=== PATIENT | male | born 1955 | race Caucasian/White ===

== ENCOUNTER 2023-10-29 06:46 | Day surgery (SDC) | payer OTHER, MEDICARE ==
[2023-10-14 13:44] LABS: Absolute Lymphocytes (CBC) 1.4 K/uL (0.7-4.9); Hematocrit 43.7 % (39.6-49.0); Lymphocytes % 23.3 % (15.3-44.8); MCV 90.3 fL (80-100); MPV 6.7 fL (7.6-11.3); Platelets 234 thou/uL (152-406); RBC Red Blood Cell Count 4.83 M/uL (4.33-5.43)
[2023-10-14 13:52] LABS: Protime INR 1.03
--- NOTE | 2023-10-14 17:26 | RAD REPORT ---
EXAM DESCRIPTION: RAD - Chest Pa And Lat (2 Views) - 10/14/2023 1:36 pm CLINICAL HISTORY: pre op for surgery. Hypertension COMPARISON: Chest Single View dated 11/24/2017 TECHNIQUE: PA and lateral views of the chest were obtained. FINDINGS: The lungs are clear. Heart size is normal and central vasculature is within normal limits. No pleural effusion or pneumothorax seen. No acute bony finding noted. IMPRESSION: No acute cardiopulmonary process.
--- NOTE | 2023-10-15 17:51 | EKG ---
Test Date: 2023-10-14 Test Time: 14:26:20 Die Maker Bench Stamping: ARIC MEASUREMENT RESULTS: Intervals: Rate: 75 NE: 190 QRSD: 90 QT: 364 QTc: 406 Amelia: P: 33 NE: 190 QRS: 82 T: 8 INTERPRETIVE STATEMENTS: Sinus rhythm with premature atrial complexes Otherwise normal ECG Compared to ECG 11/24/2017 01:47:10 Atrial premature complex(es) now present Myocardial infarct finding no longer present Electronically Signed On 10-15-23 17:50:25 SYNTHETIC PLASTERER by Darell Zaragoza
[2023-10-29] MEDS ORDERED: Ringers Lactate 1,000 ML IV ONE (07:06)
[2023-10-29] MEDS ORDERED: CEFAZOLIN SODIUM 2 GM/VIAL ONE (07:34)
[2023-10-29] MEDS ORDERED: propofoL 200 MG/20 ML VIAL IV ONE (07:58)
[2023-10-29] MEDS ORDERED: MIDAZOLAM HCL 2 MG/2 ML INJ ONE (07:58)
[2023-10-29] MEDS ORDERED: FENTANYL CITR 100 MCG/2 ML ONE (07:58)
[2023-10-29] MEDS ORDERED: LIDOCAINE 1% MPF 5 ML VIAL ONE (07:58)
[2023-10-29] MEDS ORDERED: KETOROLAC 30 MG/ML INJ ONE (08:46)
[2023-10-29] MEDS ORDERED: dexAMETHasone 10 MG/ML VIAL ONE (08:46)
[2023-10-29] MEDS ORDERED: ONDANSETRON 4 MG/2 ML VIAL ONE (08:46)
[2023-10-29] MEDS ORDERED: PHENAZOPYRIDINE 100MG TAB PO ONE (10:00)
[2023-10-29] MEDS ORDERED: CODEINE 30MG/APAP 300MG TAB PO PRN (10:00)
[2023-10-29] MEDS ORDERED: CODEINE 30MG/APAP 300MG TAB ONE (11:02)
[2023-10-29] MEDS ORDERED: CODEINE 30MG/APAP 300MG TAB PO ONE (11:03)
[2023-10-29 11:38] VITALS: O2SAT 100
[2023-10-29 12:41] VITALS: BP 140/83; TEMP 96.9
--- NOTE | 2023-10-29 19:33 | OP ---
Surgeon: MELISSA HERNANDEZ Preoperative Diagnoses: 1.Benign prostatic hypertrophy with lower urinary tract obstruction and symptoms. 2.History of UroLift 7 years ago. Postoperative Diagnoses: 1.Benign prostatic hypertrophy with lower urinary tract obstruction and symptoms. 2.History of UroLift 7 years ago. Principal Procedures: 1.Prostatic urethral lift/UroLift with 5 implants placed, 2 pull-throughs, a total of 7 implants use d. 2.Cystoscopy with foreign body extraction. 3.Cystoscopy with fulguration. Indication For Procedure: Mr. Carter presented to the [facility] with bothersome urinary symptoms that have recurred after his history of UroLift with significant improvement several years ago. He resumed monotherapy with an alpha-demarcus, Flomax, but did not desire to remain on medical therapy. Instead, he would prefer to have definitive surgical correction performed again and elected to procee d with redo/repeat UroLift. Procedure In Detail: The patient was consented in the preoperative holding area before being transfe rred to the operative suite where general anesthesia was induced. He was given Ancef 2 g IV antimicr obial prophylaxis, and pneumo boots were provided for DVT prophylaxis. He was placed in the lithotom y position, padded and secured to the table appropriately, and his genitalia was prepped with Hibicle ns before being draped in standard fashion. The case was begun using the 20-Cuban UroLift obturator and a visual obturator to traverse the urethra and into the bladder with ease. The anatomy of obstr uction observed was a small median lobe with some residual lateral lobar hypertrophy. Evidence of pr ior UroLift implant was present, but interdigitating lateral lobar hypertrophy nevertheless had recur red in the interim. As a result, I started by switching the visual obturator for first UroLift deliv silvana device and implant, and I targeted the patient's bladder neck on the left side because the implan t placed on the right side seem to still nicely lateralize the tissue in that location. Thus, target ing approximately 1.5-2 cm distal to the bladder neck opening, at around the 1 to 2 o'clock position, I angled the scope about 15 degrees touching the tissue and pulled the trigger, delivering the needl e through the surface of the prostate to the capsule. I then angled the scope an additional 15 degre es to ensure the needle was delivered through to the capsular surface before pulling the trigger a se cond time to deliver the capsular tab and partially retract the needle. A third pull of the trigger did tension the suture and completely retracted the needle before I then advanced the scope back towa rd the midline and 2-3 mm toward the bladder neck opening before pulling the trigger fourth time depl oying the urethral end piece, which did situate nicely with a good rim of prostate tissue between the implant and the opening into the bladder. As a result, I surveyed the channel created with the visu al obturator and there was a beautiful opening at the bladder neck from the old implant and the new i mplant placed. The tissue that was obstructing was in the apical mid portion of the prostate; so I t urned my attention to the apex of the prostate and started on the patient's right apex. At the level of the verumontanum, I used a new implant, which I attempted to deliver at around the 11 o'clock pos ition on the patient's right side at the level of the verumontanum. Unfortunately, after 2 pulls of the trigger and attempting to advance the scope toward the bladder neck, there was some resistance an d the suture did not flow smoothly within the delivery bay. As a result, when I pulled the trigger a fourth time, there was evident pull-through of the capsular tab, which was situated partially within the tissue at the apex. As a result, I had to switch the 20-Cuban UroLift sheath for a 22-Cuban r igid cystoscope sheath and used the cold cup biopsy forceps to grasp the implant and its capsular tab in its entirety and removed it under direct vision. I then went back to the visual obturator and th e 20-Cuban sheath and replaced the UroLift device back into his bladder. I then targeted with now t he third implant the same position at the patient's right apex, and successfully delivered an implant in that location. This was a second implant placed, but the third used. I then targeted the patien t's left side at the apex, but this obstruction was more apical mid gland, so I applied a fourth impl ant, used the third implant placed in that position on the patient's left side. I then surveyed the channel created, and there was some residual intrusion in the mid base zone of the prostate on the pa tient's right side; so I used a fifth implant, the fourth implant to be successfully placed and later alized the tissue on the patient's right side, creating a nice channel. The median lobe was then ass essed to be partially residually obstructing; so, I utilized a sixth implant this time situated withi n the patient's right lateral sulcus and was able to nicely pin the median lobe over to the patient's left side with the implant nicely tucked within the prostatic urethra, not exposed to the intravesic al space. As a result, this was the fifth implant placed for a total of 6 used. I then surveyed the channel created again using the visual obturator, and did appreciate a slight degree of left mid bas e intrusion, and since this was a redo/repeat UroLift, in an effort to try to achieve absolute perfec tion, I utilized a seventh implant and targeted that tissue. Unfortunately, this did result in failu re of delivery of the implant with the device completely malfunctioning and failing to even deliver t he capsular tab to the capsular surface of the prostate. As a result, I removed that implant and dis carded it. In the end, a total of 5 implants were successfully placed, there was 1 pull-through and 1 failure of the device for a total of 7 implants used. Because there was some bleeding from that la st attempted implant site, I then switched to sterile water as the irrigant and went back to the 22-F rench rigid cystoscope and used a Bugbee electrode to fulgurate the bleeding vessel in that location until the prostatic channel was completely hemostatic. I then refilled his bladder with sterile wate r and confirmed the presence of a beautiful continuous anterior channel before I then placed an 18-Fr ench coude tip catheter into his bladder and connected it to a leg bag. He was then taken out of the lithotomy position, awakened from general anesthesia, transferred to a stretcher, and then transferr ed to the recovery room in good condition. Complications: None. Discharge Disposition: He will be standard UroLift followup pathway with followup planned in about a month. MELLO/ADELAIDAL Voice ID: [id number] Report ID: [id number]
== END 2023-10-29 11:28 | disposition home or self-care (01) ==
LOC: OR 06:46
PROVIDERS: ATTEND Urology
PROC: 0T7D8DZ Dilation of Urethra with Intraluminal Device, Via Natural or Artificial Opening Endoscopic (ICD-10-PCS; principal; 2023-10-29 08:15)
DX: N40.0 Benign prostatic hyperplasia without lower urinary tract symptoms (principal); N40.1 Benign prostatic hyperplasia with lower urinary tract symptoms; N13.8 Other obstructive and reflux uropathy
CPT/HCPCS: 93005; 87088; 85025; 87086; 80048; 36415; 85610; 71046; 52441; 52442 ×4; J2704; J2001; J2250; J3010; J1100; J2405; J7120